=== PATIENT | male | born 1960 | race Hispanic/Latino ===

== ENCOUNTER → 2017-04-14 | Outpatient (CLI) | payer OTHER ==
[~2017-04-14] MED LIST: ACET12.52 PO; ALBU0.63 IH; ATOR20TA65 PO; BACL10TA PO; CARV25TA PO; DOXY100T2 PO; ENAL2.5T PO; ESOM40CA54 PO; FLUT16H NASAL; FURO20TA4 PO; GABA-529 PO; HYDR-4068 PO; IBUP-2077 PO; PROM25TA7 PO
== END | disposition home or self-care (01) ==
LOC: SHCH 11:31
PROVIDERS: ATTEND Internal Medicine Cardiovascular Disease
DX: I10 Essential (primary) hypertension (principal); I42.0 Dilated cardiomyopathy; E78.5 Hyperlipidemia, unspecified
CPT/HCPCS: 93306

== ENCOUNTER 2017-09-15 08:00 | Observation (INO) | payer OTHER ==
[2017-09-10 10:45] LABS: BASOPHILS % (AUTO) 0.9 % (0.0-5.0); EOSINOPHILS % (AUTO) 4.3 % (0.0-8.0); HEMATOCRIT 38.5 % (42-54); LYMPHOCYTES % (AUTO) 24.8 % (21.0-51.0); MEAN CORPUSCULAR HEMOGLOBIN 31.7 pg (27.0-33.0); MEAN CORPUSCULAR HGB CONC 33.7 g/dL (32.0-36.0); MEAN CORPUSCULAR VOLUME 94.2 fL (79-99); MONOCYTES % (AUTO) 8.5 % (3.0-13.0); NEUTROPHILS % (AUTO) 61.5 % (40.0-77.0); PLATELET COUNT (AUTO) 311 K/uL (130-400); RED BLOOD CELL COUNT(AUTO) 4.09 MIL/uL (4.50-6.20); RED CELL DISTRIBUTION WIDTH 13.4 % (11.0-15.5); WHITE BLOOD COUNT (AUTO) 14.5 K/uL (4.8-10.8)
[2017-09-10 10:46] VITALS: BP 152/81
[2017-09-10 10:58] LABS: CREATININE 0.7 mg/dL (0.5-1.5); POTASSIUM 3.9 mmol/L (3.5-5.1)
[2017-09-10 11:35] LABS: INR 1.13 (0.85-1.15); PARTIAL THROMBOPLASTIN TIME 29.7 SEC (26.3-35.5); PROTHROMBIN TIME 11.8 SEC (9.6-11.6)
[2017-09-15] VITALS (18 sets, daily range): BP systolic 117–178; BP diastolic 55–87
[~2017-09-15] VITALS: Ht 177.8 cm; Wt 159.7 kg
[~2017-09-15 08:00] MED LIST changes: -ACET12.52 PO; -ALBU0.63 IH; -ATOR20TA65 PO; -DOXY100T2 PO; -FLUT16H NASAL
[2017-09-15] MEDS ORDERED: SODIUM CHLORIDE 0.9% 1000ML 1,000 ML IV ONE ×2 (08:53→09:06)
[2017-09-15] MEDS ORDERED: MEPERIDINE-PF 25 MG/ML SYG ONE ×6 (15:23→19:07)
[2017-09-15] MEDS ORDERED: MIDAZOLAM HCL 1 MG/ML 2ML VIAL ONE ×5 (15:23→16:19)
[2017-09-15] MEDS ORDERED: CEFAZOLIN SODIUM 1 GM VIAL ONE (15:23)
[2017-09-15] MEDS ORDERED: BUPIVACAINE/PF 0.25% 50ML VIAL IJ ONE (15:23)
[2017-09-15] MEDS ORDERED: LIDOCAINE HCL 2% 20ML ONE ×2 (15:25)
[2017-09-15] MEDS ORDERED: ISOVUE-300 100 ML VIAL IV ONE (15:40)
[2017-09-15] MEDS ORDERED: KETAMINE HCL 100 MG/ML 5ML VIAL IJ ONE (16:32)
[2017-09-15] MEDS ORDERED: PROPOFOL 10 MG/ML 20ML VIAL IV ONE ×3 (16:41→18:07)
[2017-09-15] MEDS ORDERED: FUROSEMIDE 10 MG/ML 2ML VIAL ONE (18:39)
[2017-09-15] MEDS ORDERED: BACLOFEN 10 MG TABLET PO PRN (18:45)
[2017-09-15] MEDS ORDERED: ONDANSETRON HCL 4 MG/2 ML VIAL IV PRN (18:45)
[2017-09-15] MEDS ORDERED: HYDROCODONE/ACETAMINOPHEN 10/325 MG TAB PO PRN (18:45)
[2017-09-15] MEDS ORDERED: PROMETHAZINE HCL 25 MG TABLET PO PRN (18:45)
[2017-09-15] MEDS ORDERED: IBUPROFEN 800 MG TAB PO PRN (18:45)
[2017-09-15] MEDS ORDERED: GABAPENTIN 100 MG CAPSULE PO PRN (18:45)
[2017-09-15] MEDS ORDERED: DOXY100T2 PO (18:49)
[2017-09-15] MEDS ORDERED: ALPRAZOLAM 0.5 MG TABLET PO SCH (21:00)
[2017-09-15] MEDS: CARVEDILOL 25 MG TABLET PO SCH (21:36)
[2017-09-15] MEDS: FUROSEMIDE 20 MG TABLET PO SCH (21:36)
[2017-09-15] MEDS: ENALAPRIL MALEATE 5 MG TAB PO SCH (21:37)
[2017-09-16 03:37] VITALS: BP 119/72
[2017-09-16] MEDS ORDERED: CEFAZOLIN SODIUM 1 GM VIAL IVP SCH (06:00)
[2017-09-16 07:12] VITALS: BP 125/66
[2017-09-16] MEDS ORDERED: ESOMEPRAZOLE MAGNESIUM 40 MG PO SCH (09:00)
[2017-09-16] MEDS: FUROSEMIDE 20 MG TABLET PO SCH (10:08)
[2017-09-16] MEDS: CARVEDILOL 25 MG TABLET PO SCH (10:08)
[2017-09-16] MEDS: ENALAPRIL MALEATE 5 MG TAB PO SCH (10:08)
[2017-09-16 11:27] VITALS: BP 121/71
== END 2017-09-16 14:40 | disposition home or self-care (01) ==
LOC: DAH 08:00 → 2DH 08:01 → DAH 08:01
PROVIDERS: ADMIT Family Medicine; ATTEND Family Medicine
DX: I25.5 Ischemic cardiomyopathy (principal); I11.0 Hypertensive heart disease with heart failure; I50.42 Chronic combined systolic (congestive) and diastolic (congestive) heart failure; I44.7 Left bundle-branch block, unspecified; G47.33 Obstructive sleep apnea (adult) (pediatric); E66.01 Morbid (severe) obesity due to excess calories; K21.9 Gastro-esophageal reflux disease without esophagitis; M19.90 Unspecified osteoarthritis, unspecified site; Z95.810 Presence of automatic (implantable) cardiac defibrillator; Z79.899 Other long term (current) drug therapy
CPT/HCPCS: 33249; 36415; 71046; 80048; 85025; 85610; 85730; 93005; 96374; 96375; A4218; A4606; C1769 ×5; C1882; C1894 ×2; C1895; C1900; G0378 ×31; J0690 ×2; J1940; J2175 ×6; J2250 ×5; J2405; J2704 ×3; J3490 ×4; J7030; Q9967; 33216; 33225; 33241; 33244; 33264; 99156; 99157

== ENCOUNTER 2019-11-11 06:58 | Inpatient (IN) | payer OTHER ==
[~2019-11-11] VITALS: Ht 177.8 cm; Wt 143.5 kg
[~2019-11-11 06:58] MED LIST changes: +DOXY100T2 PO; -ENAL2.5T PO; +ENAL2.5T16 PO
[2019-11-11 07:18] LABS: BASOPHILS % (AUTO) 0.2 % (0.0-5.0); EOSINOPHILS % (AUTO) 0.1 % (0.0-8.0); HEMATOCRIT 45.1 % (42-54); MEAN CORPUSCULAR HEMOGLOBIN 31.6 pg (27.0-33.0); MEAN CORPUSCULAR HGB CONC 32.6 g/dL (32.0-36.0); MONOCYTES % (AUTO) 5.2 % (3.0-13.0); NEUTROPHILS % (AUTO) 83.7 % (40.0-77.0); PLATELET COUNT (AUTO) 212 K/uL (130-400); RED BLOOD CELL COUNT(AUTO) 4.65 MIL/uL (4.50-6.20); RED CELL DISTRIBUTION WIDTH 12.5 % (11.0-15.5); WHITE BLOOD COUNT (AUTO) 18.4 K/uL (4.8-10.8)
[2019-11-11 07:34] LABS: CARBON DIOXIDE 27 mmol/L (21-32); CHLORIDE 100 mmol/L (101-111); CREATININE 0.7 mg/dL (0.5-1.5); GLOMERULAR FILTR. RATE CALC 123 mL/min (>60); GLUCOSE,RANDOM 162 mg/dL (70-105); POTASSIUM 5.1 mmol/L (3.5-5.1); SODIUM SERUM 133 mmol/L (136-145); UREA NITROGEN, BLOOD 14 mg/dL (7-18)
[2019-11-11 07:43] LABS: INR 1.25 (0.85-1.15); PARTIAL THROMBOPLASTIN TIME 36.4 SEC (26.3-35.5); PROTHROMBIN TIME 13.4 SEC (9.6-11.6)
[2019-11-11 07:45] LABS: ALANINE AMINOTRANSFERASE 27 U/L (12-78); ALBUMIN 2.3 g/dL (3.5-5.0); ASPARTATE AMINOTRANSFERASE 44 U/L (10-37); BILIRUBIN,TOTAL 0.7 mg/dL (0.2-1.0); CREATINE KINASE, TOTAL 95 U/L (21-232); MYOGLOBIN 41 ng/mL (10-92); TOTAL PROTEIN, SERUM 7.5 g/dL (6.0-8.3); TROPONIN I < 0.04 ng/mL (0.00-0.06)
[2019-11-11] MEDS ORDERED: METHYLPREDNISOLONE SOD SUCC 40MG/ML 1ML ONE (08:14)
[2019-11-11] MEDS ORDERED: CEFTRIAXONE SODIUM 2 GM VIAL ONE (08:14)
--- NOTE | 2019-11-11 11:40 | NUR ---
Patient still in ER department,awaiting for patient to be transferred to Medical floor or to COVID unit in order to be able to initiate skilled Physical Therapy Evaluation. Addendum: 11/11/19 at 1523 by LAKHWINDER ELIAS, PT PT Amended: Links added.
[2019-11-11] MEDS: DOXYCYCLINE 100MG+NS 250ML IV SCH ×2 (11:45→23:45)
[2019-11-11] MEDS: CEFTRIAXONE SODIUM 1 GM IVP SCH ×2 (11:45→22:58)
[2019-11-11] MEDS ORDERED: POTASSIUM CHLORIDE 20MEQ/100ML 100 ML IV PRN (11:45)
[2019-11-11] MEDS ORDERED: ACETAMINOPHEN 325 MG TAB PO PRN (11:45)
[2019-11-11] MEDS ORDERED: POTASSIUM CHLORIDE 20 MEQ ERTAB PO PRN (11:45)
[2019-11-11] MEDS ORDERED: HYDRALAZINE HCL 20 MG/ML VIAL IV PRN (11:45)
[2019-11-11] MEDS ORDERED: LIDOCAINE HCL-MPF 1% 2ML VIAL IV PRN (11:45)
[2019-11-11] MEDS ORDERED: DEXTROSE 50%-WATER 50 ML DISP.SYRIN IV PRN (11:45)
[2019-11-11] MEDS ORDERED: LOPERAMIDE 1 MG/7.5 ML UDCUP PO PRN (11:45)
[2019-11-11] MEDS ORDERED: ONDANSETRON HCL 4 MG/2 ML VIAL IVP PRN (11:45)
[2019-11-11] MEDS ORDERED: POTASSIUM CHLORIDE 10% ELIXIR 20 MEQ/15 ML UDCUP PO PRN (11:45)
[2019-11-11] MEDS ORDERED: GLUCAGON 1MG KIT 1 MG ML IM PRN (11:45)
[2019-11-11 14:45] VITALS: BP 136/57
[2019-11-11] MEDS: INSULIN HUMULIN R 100 UNIT/ML 3ML SQ SCH ×2 (16:30→20:40)
[2019-11-11] MEDS: FAMOTIDINE 20MG TAB 20 MG TAB PO SCH (20:09)
[2019-11-11] MEDS: HYDROMORPHONE HCL 0.5 MG/0.5 ML ML IVP PRN (20:11)
[2019-11-11] MEDS ORDERED: ZINC SULFATE 220 CAPSULE PO SCH (20:15)
[2019-11-11] MEDS ORDERED: ASCORBIC ACID 500 MG TAB PO SCH (20:15)
[2019-11-11] MEDS: ENOXAPARIN SODIUM 80 MG/0.8 ML SQ SCH (20:51)
[2019-11-11 20:54] VITALS: BP 142/76
[2019-11-11 23:45] VITALS: BP 144/76
[2019-11-12 03:33] LABS: ABG BASE EXCESS 2.5 mmol/L (-2.0-3.0); ABG HCO3 26.9 mmol/L (21.0-28.0); ABG PCO2 41 mmHg (35-48)
[2019-11-12 04:00] VITALS: BP 143/68
[2019-11-12] MEDS: HYDROMORPHONE HCL 0.5 MG/0.5 ML ML IVP PRN ×2 (04:00→19:53)
[2019-11-12 04:55] LABS: BASOPHILS % (AUTO) 0.1 % (0.0-5.0); HEMATOCRIT 41.9 % (42-54); LYMPHOCYTES % (AUTO) 10.2 % (21.0-51.0); MEAN CORPUSCULAR HEMOGLOBIN 31.3 pg (27.0-33.0); MEAN CORPUSCULAR HGB CONC 32.5 g/dL (32.0-36.0); MEAN CORPUSCULAR VOLUME 96.3 fL (79-99); MONOCYTES % (AUTO) 9.4 % (3.0-13.0); NEUTROPHILS % (AUTO) 79.4 % (40.0-77.0); PLATELET COUNT (AUTO) 241 K/uL (130-400); RED BLOOD CELL COUNT(AUTO) 4.35 MIL/uL (4.50-6.20); RED CELL DISTRIBUTION WIDTH 12.5 % (11.0-15.5); WHITE BLOOD COUNT (AUTO) 15.5 K/uL (4.8-10.8)
[2019-11-12 04:59] LABS: ALANINE AMINOTRANSFERASE 36 U/L (12-78); ASPARTATE AMINOTRANSFERASE 30 U/L (10-37); BILIRUBIN,DIRECT 0.1 mg/dL (0.0-0.3); BILIRUBIN,TOTAL 0.5 mg/dL (0.2-1.0); CARBON DIOXIDE 29 mmol/L (21-32); CHLORIDE 103 mmol/L (101-111); CREATININE 0.8 mg/dL (0.5-1.5); GLOMERULAR FILTR. RATE CALC 105 mL/min (>60); GLUCOSE,RANDOM 131 mg/dL (70-105); LACTATE DEHYDROGENASE 267 U/L (81-234); PHOSPHORUS 2.4 mg/dL (2.5-4.9); POTASSIUM 3.7 mmol/L (3.5-5.1); SODIUM SERUM 139 mmol/L (136-145); TOTAL PROTEIN, SERUM 6.8 g/dL (6.0-8.3); UREA NITROGEN, BLOOD 18 mg/dL (7-18)
[2019-11-12] MEDS: INSULIN HUMULIN R 100 UNIT/ML 3ML SQ SCH ×4 (05:56→21:00)
--- NOTE | 2019-11-12 06:18 | NUR ---
assessment Pt. is alert and oriented times 4. complains of chronic back pain for which i medicated the pt. twice throughout the night with .5 of dilaudid. patient got up and walked to the bathroom without oxygen and had a bowel movement. after he came back to bed i checked his oxygen and he was sating 82% on room air. i put the high flow back on the patient and he recovered to 93%. he signed the consent for plasma last night and a copy was sent to lab. his am blood sugar is 119. no coverage needed. vitals stable will continue to monitor.
[2019-11-12 08:00] VITALS: BP 146/79
[2019-11-12] MEDS: ASCORBIC ACID 500 MG TAB PO SCH (08:50)
[2019-11-12] MEDS: ENOXAPARIN SODIUM 80 MG/0.8 ML SQ SCH ×2 (08:50→19:53)
[2019-11-12] MEDS: FAMOTIDINE 20MG TAB 20 MG TAB PO SCH ×2 (08:50→19:52)
[2019-11-12] MEDS: DEXAMETHASONE SOD PHOSPHATE 4 MG/ML 1ML VIAL IVP SCH (08:51)
[2019-11-12 11:30] VITALS: BP 154/96
[2019-11-12] MEDS ORDERED: ZINC SULFATE 220 CAPSULE PO SCH (12:00)
[2019-11-12] MEDS: CEFTRIAXONE SODIUM 1 GM IVP SCH ×2 (13:23→23:09)
[2019-11-12] MEDS: FUROSEMIDE 10 MG/ML 4ML VIAL IV SCH ×2 (13:23→23:09)
[2019-11-12] MEDS ORDERED: ZINC SULFATE 220 CAPSULE PO ONE (15:00)
[2019-11-12 15:30] VITALS: BP 154/68
--- NOTE | 2019-11-12 16:15 | NUR ---
INITIAL SW spoke to patient's spouse, Jose Alston. Patient lives with spouse and has no home services. DME: nebulizer. Patient is able to complete ADL's independently and drives. PCP is Dr. Dayami Harkins. Pharmacy is [facility] in [place]. DCP is home. Addendum: 11/12/19 at 1618 by DAYAMI HANKINS SS Amended: Links added.
[2019-11-12] MEDS: DOXYCYCLINE HYCLATE 100 MG TABLET PO SCH (19:52)
[2019-11-12 20:12] VITALS: BP 162/91
[2019-11-12 23:53] VITALS: BP 149/74
[2019-11-13] MEDS: HYDROMORPHONE HCL 0.5 MG/0.5 ML ML IVP PRN (02:33)
[2019-11-13 04:08] VITALS: BP 171/95
[2019-11-13] MEDS: INSULIN HUMULIN R 100 UNIT/ML 3ML SQ SCH ×4 (05:44→21:00)
--- NOTE | 2019-11-13 06:01 | NUR ---
assessment patient is alert and oriented times 4. was given dilaudid last night twice for his chronic back pain. patient is on high flow sating 92%. am blood sugar was 104 vitals are stable will continue to monitor.
[2019-11-13 06:26] LABS: HEMATOCRIT 46.2 % (42-54); MEAN CORPUSCULAR HEMOGLOBIN 31.5 pg (27.0-33.0); MEAN CORPUSCULAR HGB CONC 32.7 g/dL (32.0-36.0); MEAN CORPUSCULAR VOLUME 96.5 fL (79-99); RED BLOOD CELL COUNT(AUTO) 4.79 MIL/uL (4.50-6.20); RED CELL DISTRIBUTION WIDTH 12.5 % (11.0-15.5); WHITE BLOOD COUNT (AUTO) 18.6 K/uL (4.8-10.8)
[2019-11-13 07:23] LABS: ABG BASE EXCESS 3.6 mmol/L (-2.0-3.0); ABG HCO3 27.8 mmol/L (21.0-28.0); ABG OXYGEN SATURATION 92.3 % (95.0-99.0); ABG PCO2 41 mmHg (35-48)
[2019-11-13 08:00] VITALS: BP 164/93
[2019-11-13 08:59] LABS: CREATININE 0.8 mg/dL (0.5-1.5); CRP QUANTITATIVE 88.8 mg/L (0.00-9.0); MAGNESIUM 2.2 mg/dL (1.80-2.40); PHOSPHORUS 2.5 mg/dL (2.5-4.9); POTASSIUM 3.5 mmol/L (3.5-5.1)
[2019-11-13] MEDS: FAMOTIDINE 20MG TAB 20 MG TAB PO SCH ×2 (10:32→21:38)
[2019-11-13] MEDS: ASCORBIC ACID 500 MG TAB PO SCH (10:32)
[2019-11-13] MEDS: DOXYCYCLINE HYCLATE 100 MG TABLET PO SCH ×2 (10:32→21:38)
[2019-11-13] MEDS: DEXAMETHASONE SOD PHOSPHATE 4 MG/ML 1ML VIAL IVP SCH (10:34)
[2019-11-13] MEDS: ENOXAPARIN SODIUM 80 MG/0.8 ML SQ SCH ×2 (10:36→21:41)
[2019-11-13 11:30] VITALS: BP 183/97
[2019-11-13] MEDS: ENALAPRIL MALEATE 5 MG TAB PO SCH ×2 (12:03→21:00)
[2019-11-13] MEDS: FUROSEMIDE 10 MG/ML 4ML VIAL IV SCH (13:02)
[2019-11-13] MEDS: CARVEDILOL 25 MG TABLET PO SCH ×2 (13:02→21:41)
[2019-11-13] MEDS: CEFTRIAXONE SODIUM 1 GM IVP SCH ×2 (13:03→23:45)
[2019-11-13] MEDS: ZINC SULFATE 220 CAPSULE PO SCH (13:03)
[2019-11-13] MEDS ORDERED: GABAPENTIN 100 MG CAPSULE PO PRN (13:15)
[2019-11-13 15:30] VITALS: BP 138/79
--- NOTE | 2019-11-13 19:10 | NUR ---
Patient given 2 units of convalescent plasma on shift and tolerated well.
[2019-11-13] MEDS ORDERED: ALBUTEROL INHALER 90MCG/INH IH PRN (20:45)
[2019-11-13 21:29] VITALS: BP 148/78
--- NOTE | 2019-11-13 21:46 | NUR ---
VASOTEC MEDICATION WAS NOT AVAILABLE IN [facility]
[2019-11-14 00:23] VITALS: BP 129/63
[2019-11-14] MEDS: FUROSEMIDE 10 MG/ML 4ML VIAL IV SCH ×3 (01:50→21:52)
[2019-11-14 04:05] LABS: ABG HCO3 28.8 mmol/L (21.0-28.0); ABG OXYGEN SATURATION 90.3 % (95.0-99.0); ABG PCO2 36 mmHg (35-48)
[2019-11-14 04:23] VITALS: BP 153/82
[2019-11-14 07:05] LABS: HEMATOCRIT 46.3 % (42-54); MEAN CORPUSCULAR HEMOGLOBIN 31.5 pg (27.0-33.0); MEAN CORPUSCULAR HGB CONC 32.8 g/dL (32.0-36.0); MEAN CORPUSCULAR VOLUME 95.9 fL (79-99); RED BLOOD CELL COUNT(AUTO) 4.83 MIL/uL (4.50-6.20); RED CELL DISTRIBUTION WIDTH 12.5 % (11.0-15.5); WHITE BLOOD COUNT (AUTO) 18.5 K/uL (4.8-10.8)
[2019-11-14] MEDS: INSULIN HUMULIN R 100 UNIT/ML 3ML SQ SCH ×4 (07:30→21:00)
[2019-11-14 07:33] LABS: ALBUMIN 2.5 g/dL (3.5-5.0); BILIRUBIN,TOTAL 0.6 mg/dL (0.2-1.0); CREATININE 0.7 mg/dL (0.5-1.5); MAGNESIUM 2.4 mg/dL (1.80-2.40); POTASSIUM 3.8 mmol/L (3.5-5.1); TOTAL PROTEIN, SERUM 7.8 g/dL (6.0-8.3)
[2019-11-14 08:00] VITALS: BP 131/79
[2019-11-14] MEDS: ENOXAPARIN SODIUM 80 MG/0.8 ML SQ SCH ×2 (09:00→21:55)
[2019-11-14] MEDS: DOXYCYCLINE HYCLATE 100 MG TABLET PO SCH ×2 (09:00→21:52)
[2019-11-14] MEDS: ASCORBIC ACID 500 MG TAB PO SCH (09:00)
[2019-11-14] MEDS: CARVEDILOL 25 MG TABLET PO SCH ×2 (09:00→21:58)
[2019-11-14] MEDS: FAMOTIDINE 20MG TAB 20 MG TAB PO SCH ×2 (09:00→21:52)
[2019-11-14] MEDS: ENALAPRIL MALEATE 5 MG TAB PO SCH ×2 (09:00→21:52)
[2019-11-14] MEDS: DEXAMETHASONE SOD PHOSPHATE 4 MG/ML 1ML VIAL IVP SCH (09:00)
[2019-11-14 11:30] VITALS: BP 129/75
[2019-11-14] MEDS: CEFTRIAXONE SODIUM 1 GM IVP SCH ×2 (12:32→21:54)
[2019-11-14] MEDS: ZINC SULFATE 220 CAPSULE PO SCH (12:32)
[2019-11-14 15:30] VITALS: BP 112/57
[2019-11-14 20:00] VITALS: BP 140/86
[2019-11-15] VITALS: BP 139/82
[2019-11-15 04:00] VITALS: BP 115/74
[2019-11-15 05:18] LABS: BASOPHILS % (AUTO) 0.6 % (0.0-5.0); EOSINOPHILS % (AUTO) 0.2 % (0.0-8.0); HEMATOCRIT 48.9 % (42-54); LYMPHOCYTES % (AUTO) 17.5 % (21.0-51.0); MEAN CORPUSCULAR HEMOGLOBIN 30.8 pg (27.0-33.0); MEAN CORPUSCULAR HGB CONC 31.3 g/dL (32.0-36.0); MEAN CORPUSCULAR VOLUME 98.6 fL (79-99); MONOCYTES % (AUTO) 11.7 % (3.0-13.0); NEUTROPHILS % (AUTO) 66.7 % (40.0-77.0); PLATELET COUNT (AUTO) 302 K/uL (130-400); RED BLOOD CELL COUNT(AUTO) 4.96 MIL/uL (4.50-6.20); RED CELL DISTRIBUTION WIDTH 12.6 % (11.0-15.5)
[2019-11-15 05:45] LABS: CREATININE 1.1 mg/dL (0.5-1.5); MAGNESIUM 2.3 mg/dL (1.80-2.40); POTASSIUM 3.7 mmol/L (3.5-5.1)
[2019-11-15] MEDS: INSULIN HUMULIN R 100 UNIT/ML 3ML SQ SCH ×4 (05:52→21:00)
[2019-11-15 08:00] VITALS: BP 148/77
[2019-11-15] MEDS: FUROSEMIDE 10 MG/ML 4ML VIAL IV SCH ×2 (09:00→11:40)
[2019-11-15] MEDS: FAMOTIDINE 20MG TAB 20 MG TAB PO SCH ×2 (09:03→21:10)
[2019-11-15] MEDS: DOXYCYCLINE HYCLATE 100 MG TABLET PO SCH ×2 (09:04→21:11)
[2019-11-15] MEDS: ZINC SULFATE 220 CAPSULE PO SCH (09:04)
[2019-11-15] MEDS: CARVEDILOL 25 MG TABLET PO SCH ×2 (09:05→21:11)
[2019-11-15] MEDS: ASCORBIC ACID 500 MG TAB PO SCH (09:05)
[2019-11-15] MEDS: ENOXAPARIN SODIUM 80 MG/0.8 ML SQ SCH ×2 (09:06→21:10)
[2019-11-15] MEDS: DEXAMETHASONE SOD PHOSPHATE 4 MG/ML 1ML VIAL IVP SCH (09:07)
[2019-11-15] MEDS: ENALAPRIL MALEATE 5 MG TAB PO SCH ×2 (09:08→21:12)
[2019-11-15 11:30] VITALS: BP 133/63
[2019-11-15] MEDS: CEFTRIAXONE SODIUM 1 GM IVP SCH ×2 (11:38→21:10)
[2019-11-15 15:30] VITALS: BP 127/82
[2019-11-15 20:24] VITALS: BP 137/82
[2019-11-15] MEDS: FUROSEMIDE 40 MG TABLET PO SCH (21:11)
[2019-11-16 00:19] VITALS: BP 113/79
[2019-11-16 03:39] VITALS: BP 123/67
[2019-11-16 04:23] LABS: BASOPHILS % (AUTO) 0.4 % (0.0-5.0); EOSINOPHILS % (AUTO) 1.4 % (0.0-8.0); HEMATOCRIT 47.2 % (42-54); LYMPHOCYTES % (AUTO) 15.1 % (21.0-51.0); MEAN CORPUSCULAR HEMOGLOBIN 31.1 pg (27.0-33.0); MEAN CORPUSCULAR HGB CONC 31.8 g/dL (32.0-36.0); MEAN CORPUSCULAR VOLUME 97.7 fL (79-99); MONOCYTES % (AUTO) 12.9 % (3.0-13.0); NEUTROPHILS % (AUTO) 65.9 % (40.0-77.0); PLATELET COUNT (AUTO) 290 K/uL (130-400); RED BLOOD CELL COUNT(AUTO) 4.83 MIL/uL (4.50-6.20); RED CELL DISTRIBUTION WIDTH 12.6 % (11.0-15.5); WHITE BLOOD COUNT (AUTO) 21.8 K/uL (4.8-10.8)
[2019-11-16 04:39] LABS: ALBUMIN 2.5 g/dL (3.5-5.0); BILIRUBIN,TOTAL 0.5 mg/dL (0.2-1.0); CREATININE 0.9 mg/dL (0.5-1.5); MAGNESIUM 2.3 mg/dL (1.80-2.40); PHOSPHORUS 3.4 mg/dL (2.5-4.9); POTASSIUM 3.7 mmol/L (3.5-5.1); TOTAL PROTEIN, SERUM 8.1 g/dL (6.0-8.3)
[2019-11-16 08:00] VITALS: BP 156/82
[2019-11-16] MEDS: ENOXAPARIN SODIUM 80 MG/0.8 ML SQ SCH ×2 (08:18→21:27)
[2019-11-16] MEDS: ENALAPRIL MALEATE 5 MG TAB PO SCH ×2 (08:19→21:26)
[2019-11-16] MEDS: FUROSEMIDE 40 MG TABLET PO SCH ×2 (08:20→21:24)
[2019-11-16] MEDS: ASCORBIC ACID 500 MG TAB PO SCH (08:20)
[2019-11-16] MEDS: DOXYCYCLINE HYCLATE 100 MG TABLET PO SCH ×2 (08:21→21:24)
[2019-11-16] MEDS: DEXAMETHASONE SOD PHOSPHATE 4 MG/ML 1ML VIAL IVP SCH (08:22)
[2019-11-16] MEDS: FAMOTIDINE 20MG TAB 20 MG TAB PO SCH ×2 (08:22→21:26)
[2019-11-16] MEDS: CARVEDILOL 25 MG TABLET PO SCH ×2 (08:22→21:26)
[2019-11-16] MEDS: INSULIN HUMULIN R 100 UNIT/ML 3ML SQ SCH ×3 (11:30→21:25)
[2019-11-16 11:54] VITALS: BP 127/63
[2019-11-16] MEDS: ZINC SULFATE 220 CAPSULE PO SCH (12:37)
[2019-11-16] MEDS: CEFTRIAXONE SODIUM 1 GM IVP SCH ×2 (12:37→21:27)
[2019-11-16 16:00] VITALS: BP 119/67
[2019-11-16 20:11] VITALS: BP 136/60
[2019-11-17] VITALS: BP 148/80
[2019-11-17 03:23] LABS: ABG BASE EXCESS 3.7 mmol/L (-2.0-3.0); ABG HCO3 28.1 mmol/L (21.0-28.0); ABG OXYGEN SATURATION 85.2 % (95.0-99.0); ABG PCO2 42 mmHg (35-48)
[2019-11-17 04:55] LABS: BASOPHILS % (AUTO) 0.5 % (0.0-5.0); LYMPHOCYTES % (AUTO) 15.1 % (21.0-51.0); MEAN CORPUSCULAR HEMOGLOBIN 31.1 pg (27.0-33.0); MEAN CORPUSCULAR HGB CONC 31.7 g/dL (32.0-36.0); MEAN CORPUSCULAR VOLUME 98.2 fL (79-99); MONOCYTES % (AUTO) 10.4 % (3.0-13.0); NEUTROPHILS % (AUTO) 68.6 % (40.0-77.0); PLATELET COUNT (AUTO) 261 K/uL (130-400); RED BLOOD CELL COUNT(AUTO) 4.89 MIL/uL (4.50-6.20); RED CELL DISTRIBUTION WIDTH 12.7 % (11.0-15.5); WHITE BLOOD COUNT (AUTO) 19.7 K/uL (4.8-10.8)
[2019-11-17 05:36] LABS: ALBUMIN 2.4 g/dL (3.5-5.0); BILIRUBIN,TOTAL 0.4 mg/dL (0.2-1.0); CREATININE 0.9 mg/dL (0.5-1.5); MAGNESIUM 2.5 mg/dL (1.80-2.40); PHOSPHORUS 3.4 mg/dL (2.5-4.9); TOTAL PROTEIN, SERUM 7.8 g/dL (6.0-8.3)
[2019-11-17] MEDS: INSULIN HUMULIN R 100 UNIT/ML 3ML SQ SCH ×2 (06:55→12:49)
[2019-11-17 07:30] VITALS: BP 128/70
[2019-11-17] MEDS: DEXAMETHASONE SOD PHOSPHATE 4 MG/ML 1ML VIAL IVP SCH (08:27)
[2019-11-17] MEDS: FUROSEMIDE 40 MG TABLET PO SCH (08:28)
[2019-11-17] MEDS: ZINC SULFATE 220 CAPSULE PO SCH (08:28)
[2019-11-17] MEDS: FAMOTIDINE 20MG TAB 20 MG TAB PO SCH (08:29)
[2019-11-17] MEDS: ENOXAPARIN SODIUM 80 MG/0.8 ML SQ SCH (08:29)
[2019-11-17] MEDS: DOXYCYCLINE HYCLATE 100 MG TABLET PO SCH (08:29)
[2019-11-17] MEDS: CARVEDILOL 25 MG TABLET PO SCH (08:29)
[2019-11-17] MEDS: ASCORBIC ACID 500 MG TAB PO SCH (08:30)
[2019-11-17] MEDS: ENALAPRIL MALEATE 5 MG TAB PO SCH (08:37)
[2019-11-17] MEDS: CEFTRIAXONE SODIUM 1 GM IVP SCH (08:51)
[2019-11-17 11:00] VITALS: BP 120/51
[2019-11-17] MEDS ORDERED: DEXA6TAB PO (14:34)
--- NOTE | 2019-11-17 17:00 | NUR ---
DC HOME WITH [facility] O2 TANK AND CONCENTRATOR, PAPERWORK SIGNED, PENDING LIZ ENTERED IN THE LOG Addendum: 11/17/19 at 1831 by LYNN ROWLEY RN CM Amended: Links added.
== END 2019-11-17 17:20 | disposition home or self-care (01) | DRG 871 ==
LOC: EDH 06:58 → OBSVTOIN 11:37 → EDHIP 11:37 → 4BH 14:52
PROVIDERS: ADMIT Internal Medicine; ATTEND Internal Medicine
PROC: XW13325 Transfusion of Convalescent Plasma (Nonautologous) into Peripheral Vein, Percutaneous Approach, New Technology Group 5 (ICD-10-PCS; principal; 2019-11-13)
DX: A41.9 Sepsis, unspecified organism (principal); U07.1 COVID-19; J12.89 Other viral pneumonia; J96.01 Acute respiratory failure with hypoxia; I50.43 Acute on chronic combined systolic (congestive) and diastolic (congestive) heart failure; I42.0 Dilated cardiomyopathy; E87.2 Acidosis; E66.2 Morbid (severe) obesity with alveolar hypoventilation; Z68.42 Body mass index [BMI] 45.0-49.9, adult; K21.9 Gastro-esophageal reflux disease without esophagitis; Z95.810 Presence of automatic (implantable) cardiac defibrillator; Z79.899 Other long term (current) drug therapy
CPT/HCPCS: 36415; 36600; 71045; 80048; 80053; 80076; 82550; 82728; 82803; 82948; 83605; 83615; 83735; 83874; 83880; 84100; 84145; 84484; 85025; 85027; 85378; 85610; 85730; 86140; 86850; 86900; 86901; 86927; 87040; 93005; 93306; 93356; 94760; 97039; 99291; G0378; J0696; J1100; J1170; J1650; J1815; J1940; J2405; J2920; J3490; U0003

== ENCOUNTER → 2020-07-05 | Outpatient (CLI) | payer OTHER ==
[~2020-07-05] MED LIST changes: -BACL10TA PO; +DEXA6TAB PO; -DOXY100T2 PO; -ESOM40CA54 PO; -FURO20TA4 PO; -HYDR-4068 PO; -IBUP-2077 PO; -PROM25TA7 PO
== END | disposition home or self-care (01) ==
LOC: SHCH 09:26
PROVIDERS: ATTEND Internal Medicine Cardiovascular Disease
DX: I42.0 Dilated cardiomyopathy (principal)
CPT/HCPCS: 93306; 93356

== ENCOUNTER 2023-06-21 14:44 | Inpatient (IN) | payer OTHER ==
[~2023-06-21] VITALS: Ht 177.8 cm; Wt 139.2 kg
[~2023-06-21 14:44] MED LIST changes: +ATOR10 PO; -CARV25TA PO; +CEFU500T67 PO; -DEXA6TAB PO; +DOXY100C5 PO; +FURO20TA4 PO; +[UNRECOGNIZED DRUG - CODE] PO
[2023-06-21 15:16] LABS: BASOPHILS % (AUTO) 0.7 % (0.0-5.0); EOSINOPHILS # (AUTO) 0.78 K/uL (0.00-0.70); EOSINOPHILS % (AUTO) 5.7 % (0.0-8.0); HEMATOCRIT 40.6 % (42-54); IMMATURE GRANULOCYTE ABSOLUTE 0.07 K/uL (0-1); LYMPHOCYTES % (AUTO) 21.6 % (21.0-51.0); MEAN CORPUSCULAR HEMOGLOBIN 31.7 pg (27.0-33.0); MEAN CORPUSCULAR HGB CONC 32.3 g/dL (32.0-36.0); MEAN CORPUSCULAR VOLUME 98.3 fL (79-99); MONOCYTES # (AUTO) 1.3 K/uL (0.1-1.0); MONOCYTES % (AUTO) 9.2 % (3.0-13.0); NEUTROPHILS # (AUTO) 8.5 K/uL (1.8-7.7); NEUTROPHILS % (AUTO) 62.3 % (40.0-77.0); PLATELET COUNT (AUTO) 260 K/uL (130-400); RED BLOOD CELL COUNT(AUTO) 4.13 MIL/uL (4.50-6.20); WHITE BLOOD COUNT (AUTO) 13.7 K/uL (4.8-10.8)
[2023-06-21 15:26] LABS: CREATININE 0.9 mg/dL (0.5-1.5)
[2023-06-21 15:29] LABS: INR 1.08 (0.85-1.15); PROTHROMBIN TIME 12.5 SEC (9.6-11.6)
[2023-06-21 15:30] LABS: PARTIAL THROMBOPLASTIN TIME 32.7 SEC (26.3-35.5)
[2023-06-21 15:31] LABS: ALBUMIN 2.9 g/dL (3.5-5.0); BILIRUBIN,TOTAL 0.4 mg/dL (0.2-1.0); TOTAL PROTEIN, SERUM 7.4 g/dL (6.0-8.3)
[2023-06-21 16:06] LABS: B-TYPE NATRIURETIC PEPTIDE 36 pg/mL (0-100)
[2023-06-21] MEDS: ASPIRIN 325MG TAB PO ONE (16:22)
[2023-06-21] MEDS: METOCLOPRAMIDE 10 MG/2 ML VIAL IM ONE (16:23)
[2023-06-21] MEDS ORDERED: ACETAMINOPHEN 325 MG TAB PO PRN (18:30)
[2023-06-21] MEDS ORDERED: HYDRALAZINE 20MG/ML VIAL IV PRN (18:30)
[2023-06-21] MEDS ORDERED: ALBUTEROL 0.083% 2.5 MG/3 ML INH IH PRN (18:30)
[2023-06-21] MEDS ORDERED: ACETAMINOPHEN 650 MG SUPPOSITORY RC PRN (18:30)
[2023-06-21] MEDS ORDERED: ONDANSETRON 4MG INJ IVP PRN (18:30)
[2023-06-21] MEDS ORDERED: TEMAZEPAM 15 MG CAPSULE PO PRN (18:30)
[2023-06-21] MEDS: CLOPIDOGREL 300MG TAB PO ONE (19:02)
[2023-06-21] MEDS: NITROGLYCERIN 50MG/D5W 250ML 250 BOT IV SCH (19:06)
[2023-06-21 19:23] LABS: INR 1.18 (0.85-1.15); PROTHROMBIN TIME 13.5 SEC (9.6-11.6)
[2023-06-21] MEDS: FAMOTIDINE 20MG TAB PO SCH (20:19)
[2023-06-21] MEDS: SIMVASTATIN 20 MG TABLET PO SCH (20:20)
[2023-06-21] MEDS: FUROSEMIDE 20 MG TABLET PO SCH (20:20)
[2023-06-21] MEDS: CARVEDILOL 12.5 MG TABLET PO SCH (20:20)
[2023-06-21] MEDS: 0.9%NACL 1000ML 1,000 ML IV SCH (20:21)
[2023-06-21] MEDS: INSULIN HUMULIN R 100 UNIT/ML 3ML SQ SCH (20:25)
[2023-06-21 23:30] VITALS: BP 140/75; PULSE 63; RESP 19
[2023-06-21 23:45] VITALS: BP 136/76; PULSE 70; RESP 18
[2023-06-22] VITALS (83 sets, daily range): BP systolic 87–168; BP diastolic 35–100; PULSE 63–84; RESP 5–76; O2SAT 97–100
[2023-06-22 06:54] LABS: HEMATOCRIT 38.3 % (42-54); MEAN CORPUSCULAR HEMOGLOBIN 31.5 pg (27.0-33.0); MEAN CORPUSCULAR HGB CONC 32.4 g/dL (32.0-36.0); MEAN CORPUSCULAR VOLUME 97.2 fL (79-99); RED BLOOD CELL COUNT(AUTO) 3.94 MIL/uL (4.50-6.20); RED CELL DISTRIBUTION WIDTH 12.2 % (11.0-15.5); WHITE BLOOD COUNT (AUTO) 11.8 K/uL (4.8-10.8)
[2023-06-22 07:23] LABS: CREATININE 0.8 mg/dL (0.5-1.5); MAGNESIUM 1.9 mg/dL (1.80-2.40); PHOSPHORUS 2.7 mg/dL (2.5-4.9); POTASSIUM 3.5 mmol/L (3.5-5.1); THYROID STIMULATING HORMONE 5.24 uIU/mL (0.36-3.74)
[2023-06-22] MEDS: ASPIRIN 81MG CHEW TAB PO SCH (08:09)
[2023-06-22] MEDS: CLOPIDOGREL 75MG TAB PO SCH (08:09)
[2023-06-22] MEDS: ENOXAPARIN SODIUM 40 MG/0.4 ML SYRINGE SQ SCH (08:10)
[2023-06-22] MEDS ORDERED: ZOSYN 3.375GM +NS 50ML IV ONE (08:30)
[2023-06-22] MEDS ORDERED: LIDOCAINE HCL 2% VISCOUS 30 ML, MAG/ALUM/SIMETH 30ML 30 ML, DICYCLOMINE HCL 20 MG PO PRN (08:30)
[2023-06-22] MEDS: CEFTRIAXONE 2GM VIAL IVPB SCH (09:27)
[2023-06-22] MEDS ORDERED: POTASSIUM CHLORIDE 20MEQ/100ML 100 ML IV PRN ×2 (09:30)
[2023-06-22] MEDS: POTASSIUM CHLORIDE 10% ELIXIR 20 MEQ/15 ML UDCUP PO PRN (09:31)
[2023-06-22 10:49] LABS: APPEARANCE,URINE CLEAR (CLEAR); BILIRUBIN,URINE NEGATIVE (NEGATIVE); COLOR,URINE YELLOW (YELLOW); GLUCOSE, URINE (UA) NEGATIVE (NEGATIVE); KETONES,URINE NEGATIVE (NEGATIVE); LEUKOCYTE ESTERASE ,URINE NEGATIVE Leu/uL (NEGATIVE); MUCUS,URINE RARE LPF (None Seen); NITRATE,URINE NEGATIVE (NEGATIVE); OCCULT BLOOD,URINE NEGATIVE (NEGATIVE); PH,URINE 5.5 (5.0-8.0); PROTEIN,URINE 20 mg/dL (NEGATIVE); RBC,URINE 0-1 /HPF (0-1); SQUAMOUS EPITHELIAL CELL,UR RARE /HPF (0-2); UROBILINOGEN,URINE 0.2 mg/dL (0.2-1.0); WBC,URINE 0-1 /HPF (0-1)
[2023-06-22] MEDS: MORPHINE 2 MG SYG IVP PRN (11:24)
[2023-06-22] MEDS: GABAPENTIN 100 MG CAPSULE PO SCH (17:08)
[2023-06-22] MEDS: LINEZOLID 600 MG/ISO-OSM 300 ML IV SCH (17:08)
[2023-06-22] MEDS: KCL 20 MEQ ERTAB PO PRN (17:35)
[2023-06-22] MEDS: MAGNESIUM 2GM PREMIX 50ML 50 ML IV PRN (17:37)
[2023-06-22] MEDS ORDERED: ATORVASTATIN 10 MG TABLET PO SCH (21:00)
[2023-06-22] MEDS: NITROGLYCERIN 0.4 MG SL TAB SL PRN (22:59)
[2023-06-23] VITALS (17 sets, daily range): BP systolic 101–152; BP diastolic 54–82; PULSE 64–82; RESP 5–37; O2SAT 97–98
[2023-06-23] MEDS ORDERED: KETOROLAC 30MG VIAL (30MG/ML) IV PRN
[2023-06-23] MEDS ORDERED: KETOROLAC 30MG VIAL (30MG/ML) IM PRN
[2023-06-23 06:15] LABS: BASOPHILS # (AUTO) 0.08 K/uL (0.00-0.20); BASOPHILS % (AUTO) 0.9 % (0.0-5.0); EOSINOPHILS # (AUTO) 0.28 K/uL (0.00-0.70); EOSINOPHILS % (AUTO) 3.1 % (0.0-8.0); HEMATOCRIT 38.3 % (42-54); IMMATURE GRANULOCYTE ABSOLUTE 0.06 K/uL (0-1); LYMPHOCYTES % (AUTO) 22.7 % (21.0-51.0); MEAN CORPUSCULAR HEMOGLOBIN 31.6 pg (27.0-33.0); MEAN CORPUSCULAR HGB CONC 32.4 g/dL (32.0-36.0); MEAN CORPUSCULAR VOLUME 97.5 fL (79-99); MONOCYTES # (AUTO) 1.2 K/uL (0.1-1.0); MONOCYTES % (AUTO) 13.5 % (3.0-13.0); NEUTROPHILS # (AUTO) 5.3 K/uL (1.8-7.7); NEUTROPHILS % (AUTO) 59.1 % (40.0-77.0); PLATELET COUNT (AUTO) 206 K/uL (130-400); RED BLOOD CELL COUNT(AUTO) 3.93 MIL/uL (4.50-6.20); WHITE BLOOD COUNT (AUTO) 8.9 K/uL (4.8-10.8)
[2023-06-23 06:26] LABS: CREATININE 0.9 mg/dL (0.5-1.5); MAGNESIUM 2.3 mg/dL (1.80-2.40); POTASSIUM 3.7 mmol/L (3.5-5.1)
[2023-06-23] MEDS: IPRATROPIUM/ALBUTEROL SULFATE 3 ML SOLUTION IH SCH (11:29)
[2023-06-23] MEDS: LISINOPRIL 2.5 MG TABLET PO SCH (12:09)
[2023-06-23 15:23] LABS: SARS-CoV-2, RNA, NAAT NEGATIVE SARS CoV-2 (NEGATIVE)
[2023-06-23 15:29] LABS: INFLUENZA TYPE A Negative For Type A (NEGATIVE); INFLUENZA TYPE B Negative For Type B (NEGATIVE)
[2023-06-24 04:00] VITALS: BP 128/77; PULSE 62; RESP 20
[2023-06-24 05:18] LABS: BASOPHILS # (AUTO) 0.07 K/uL (0.00-0.20); BASOPHILS % (AUTO) 0.8 % (0.0-5.0); EOSINOPHILS # (AUTO) 0.47 K/uL (0.00-0.70); EOSINOPHILS % (AUTO) 5.2 % (0.0-8.0); HEMATOCRIT 38.5 % (42-54); IMMATURE GRANULOCYTE ABSOLUTE 0.06 K/uL (0-1); LYMPHOCYTES # (AUTO) 2.5 K/uL (1.0-4.8); LYMPHOCYTES % (AUTO) 27.8 % (21.0-51.0); MEAN CORPUSCULAR HEMOGLOBIN 30.8 pg (27.0-33.0); MEAN CORPUSCULAR HGB CONC 31.4 g/dL (32.0-36.0); MONOCYTES # (AUTO) 1.5 K/uL (0.1-1.0); MONOCYTES % (AUTO) 15.9 % (3.0-13.0); NEUTROPHILS # (AUTO) 4.5 K/uL (1.8-7.7); NEUTROPHILS % (AUTO) 49.6 % (40.0-77.0); PLATELET COUNT (AUTO) 221 K/uL (130-400); RED BLOOD CELL COUNT(AUTO) 3.93 MIL/uL (4.50-6.20); WHITE BLOOD COUNT (AUTO) 9.1 K/uL (4.8-10.8)
[2023-06-24 05:26] LABS: ALBUMIN 2.5 g/dL (3.5-5.0); BILIRUBIN,TOTAL 0.7 mg/dL (0.2-1.0); CREATININE 0.9 mg/dL (0.5-1.5); POTASSIUM 3.7 mmol/L (3.5-5.1); TOTAL PROTEIN, SERUM 6.7 g/dL (6.0-8.3)
[2023-06-24] MEDS: IPRATROPIUM/ALBUTEROL SULFATE 3 ML SOLUTION IH SCH (07:25)
[2023-06-24 08:00] VITALS: BP_SYST 128; BP_SYST 153; BP_DIAS 83; BP_DIAS 86; PULSE 62; PULSE 70; RESP 18; RESP 20
[2023-06-24 08:17] LABS: MYOGLOBIN, SERUM 45 ng/mL (28-72); RHEUMATOID ARTHRITIS FACTOR 12.5 IU/mL (<14.0)
[2023-06-24] MEDS ORDERED: IPRATROPIUM/ALBUTEROL SULFATE 3 ML SOLUTION IH PRN (10:30)
[2023-06-24 12:00] VITALS: BP 125/87; PULSE 71; RESP 18
[2023-06-24] MEDS ORDERED: GABA100C PO (13:38)
[2023-06-24 14:30] VITALS: PULSE 75; PULSE 78; RESP 20; RESP 22; O2SAT 92; O2SAT 97
[2023-06-24] MEDS: GABAPENTIN 100 MG CAPSULE PO SCH (15:11)
[2023-06-24 16:13] LABS: ALPHA-1-ANTITRYPSIN 168 mg/dL (101-187)
[2023-06-25 15:15] LABS: ATYPICAL P-ANCA AB <1:20 titer (Neg:<1:20); CYTOPLASMIC (C-ANCA) AB, IGG <1:20 titer (Neg:<1:20)
== END 2023-06-24 15:27 | disposition home or self-care (01) | DRG 311 ==
LOC: EDH 14:44 → EDHIP 18:08 → 2BH 23:20 → 2DH 06-23 04:26 → 3DH 06-23 15:40
PROVIDERS: ADMIT Internal Medicine; ATTEND Internal Medicine
DX: I20.0 Unstable angina (principal); I42.0 Dilated cardiomyopathy; J96.11 Chronic respiratory failure with hypoxia; J96.12 Chronic respiratory failure with hypercapnia; K86.1 Other chronic pancreatitis; R65.10 Systemic inflammatory response syndrome (SIRS) of non-infectious origin without acute organ dysfunction; Z68.41 Body mass index [BMI] 40.0-44.9, adult; I11.0 Hypertensive heart disease with heart failure; I50.9 Heart failure, unspecified; Z86.16 Personal history of COVID-19; E66.01 Morbid (severe) obesity due to excess calories; J44.9 Chronic obstructive pulmonary disease, unspecified; Z20.822 Contact with and (suspected) exposure to COVID-19; I34.0 Nonrheumatic mitral (valve) insufficiency; E78.00 Pure hypercholesterolemia, unspecified; K21.9 Gastro-esophageal reflux disease without esophagitis; Z95.810 Presence of automatic (implantable) cardiac defibrillator; Z99.81 Dependence on supplemental oxygen; Z98.84 Bariatric surgery status; Z95.1 Presence of aortocoronary bypass graft
CPT/HCPCS: 36415; 71045; 71250; 76604; 80048; 80053; 80061; 81001; 82103; 82550; 82948; 83516; 83605; 83690; 83735; 83874; 83880; 84100; 84145; 84439; 84443; 84481; 84484; 85025; 85027; 85378; 85610; 85651; 85730; 86038; 86140; 86215; 86235; 86255; 86431; 87040; 87635; 87804; 93005; 93306; 93880; 94640; 94664; 94760; G0378; J0696; J1650; J2020; J2270; J2765; J3475

== ENCOUNTER 2023-12-25 17:36 | Emergency (ER) | payer OTHER ==
[~2023-12-25] VITALS: Ht 177.8 cm; Wt 141.5 kg
[~2023-12-25 17:36] MED LIST changes: +CARV12.580 PO; -CEFU500T67 PO; -DOXY100C5 PO; -ENAL2.5T16 PO; +ENAL2.5T71 PO; -GABA-529 PO; +GABA100C PO; -[UNRECOGNIZED DRUG - CODE] PO
[2023-12-25 17:39] VITALS: TEMP 99
[2023-12-25 18:10] LABS: BASOPHILS # (AUTO) 0.08 K/uL (0.00-0.20); BASOPHILS % (AUTO) 0.6 % (0.0-5.0); EOSINOPHILS % (AUTO) 2.2 % (0.0-8.0); HEMATOCRIT 42.1 % (42-54); IMMATURE GRANULOCYTE ABSOLUTE 0.08 K/uL (0-1); LYMPHOCYTES # (AUTO) 1.7 K/uL (1.0-4.8); LYMPHOCYTES % (AUTO) 12.4 % (21.0-51.0); MEAN CORPUSCULAR HEMOGLOBIN 31.8 pg (27.0-33.0); MEAN CORPUSCULAR HGB CONC 32.8 g/dL (32.0-36.0); MONOCYTES # (AUTO) 1.3 K/uL (0.1-1.0); MONOCYTES % (AUTO) 9.8 % (3.0-13.0); NEUTROPHILS # (AUTO) 10.1 K/uL (1.8-7.7); NEUTROPHILS % (AUTO) 74.4 % (40.0-77.0); PLATELET COUNT (AUTO) 245 K/uL (130-400); RED BLOOD CELL COUNT(AUTO) 4.34 MIL/uL (4.50-6.20); RED CELL DISTRIBUTION WIDTH 12.3 % (11.0-15.5); WHITE BLOOD COUNT (AUTO) 13.6 K/uL (4.8-10.8)
[2023-12-25 18:25] LABS: POTASSIUM 3.6 mmol/L (3.5-5.1)
[2023-12-25 18:37] LABS: BILIRUBIN,TOTAL 0.7 mg/dL (0.2-1.0); TOTAL PROTEIN, SERUM 7.5 g/dL (6.0-8.3)
[2023-12-25] MEDS ORDERED: IOHEXOL-350 75 ML VIAL IV ONE (18:40)
[2023-12-25] MEDS: FAMOTIDINE 20MG VIAL IV ONE (18:45)
[2023-12-25] MEDS: ketOROlac 15MG/ML VIAL (15MG/ML) IV ONE (18:46)
[2023-12-25] MEDS: morPHINE 2 MG SYG IVP ONE (18:46)
[2023-12-25] MEDS: ONDANSETRON 4MG INJ IVP ONE (18:46)
[2023-12-25] MEDS: 0.9%NACL 1000ML 1,000 ML IV ONE (18:47)
[2023-12-25 20:22] VITALS: BP 134/64; PULSE 71; RESP 18; O2SAT 97
[2023-12-25] MEDS ORDERED: ONDA-243 PO (20:28)
[2023-12-25] MEDS ORDERED: FAMO-136 PO (20:28)
[2023-12-25] MEDS: LIDOCAINE HCL 2% VISCOUS 15 ML UDCUP PO ONE (20:29)
[2023-12-25] MEDS: MAG/ALUM/SIMETH 30 ML UDCUP PO ONE (20:29)
== END 2023-12-25 20:38 | disposition home or self-care (01) ==
LOC: EDH 17:36
DX: K29.70 Gastritis, unspecified, without bleeding (principal); R10.13 Epigastric pain; R11.2 Nausea with vomiting, unspecified; I11.0 Hypertensive heart disease with heart failure; I50.9 Heart failure, unspecified; E78.00 Pure hypercholesterolemia, unspecified; Z88.1 Allergy status to other antibiotic agents; Z88.8 Allergy status to other drugs, medicaments and biological substances; Z79.899 Other long term (current) drug therapy; Z95.810 Presence of automatic (implantable) cardiac defibrillator
CPT/HCPCS: 99285; 74177; 96374; 96375; 84478; 84484; 80053; 83690; 85025; 83605; 36415; 93005; 84145; J3490; J2270; J7030; J2405; J1885; Q9967

== ENCOUNTER 2024-03-24 06:40 | Day surgery (SDC) | payer OTHER ==
[~2024-03-24] VITALS: Ht 177.8 cm; Wt 138.3 kg
[2024-03-24] VITALS (11 sets, daily range): BP systolic 95–147; BP diastolic 52–74; PULSE 61–73; RESP 15–18; TEMP 97.2–97.6
[~2024-03-24 06:40] MED LIST changes: +FAMO-136 PO; +ONDA-243 PO
[2024-03-24] MEDS: 0.9%NACL 1000ML 1,000 ML IV ONE (08:13)
[2024-03-24] MEDS ORDERED: proPOFol 10 MG/ML 20ML VIAL IV ONE ×2 (09:33)
== END 2024-03-24 10:40 | disposition home or self-care (01) ==
LOC: DAH 06:40 → ENDO 06:40
PROVIDERS: ATTEND Internal Medicine Gastroenterology
DX: R93.2 Abnormal findings on diagnostic imaging of liver and biliary tract (principal); R94.5 Abnormal results of liver function studies; I10 Essential (primary) hypertension; J44.9 Chronic obstructive pulmonary disease, unspecified; K76.0 Fatty (change of) liver, not elsewhere classified; E66.09 Other obesity due to excess calories; Z68.41 Body mass index [BMI] 40.0-44.9, adult; Z79.899 Other long term (current) drug therapy; Z98.890 Other specified postprocedural states
CPT/HCPCS: 43259; J7030 ×2; J2704 ×2; A4620; A4215; A4223; A7002; A4222; A4221; A4663; A4606; J3490

== ENCOUNTER 2024-03-31 06:02 | Day surgery (SDC) | payer OTHER ==
[2024-03-31] VITALS (16 sets, daily range): BP systolic 120–140; BP diastolic 68–86; PULSE 66–71; RESP 18–20; TEMP 97.2–98.4
[~2024-03-31] VITALS: Ht 177.8 cm; Wt 138.3 kg
[2024-03-31] MEDS ORDERED: LIDOCAINE PF 100MG/5ML (2%) SYRINGE 5ML ONE (07:05)
[2024-03-31] MEDS ORDERED: SUCCINYLCHOLINE CHLORIDE 20 MG/ML 10 ML VIAL ONE (07:05)
[2024-03-31] MEDS ORDERED: rocuRONium bROMide 10MG/1ML 5ML VL ONE (07:05)
[2024-03-31] MEDS ORDERED: proPOFol 10 MG/ML 20ML VIAL IV ONE (07:05)
[2024-03-31] MEDS ORDERED: phenylEPHRINE HCL 10 MG/ML 1ML VIAL IV ONE (07:06)
[2024-03-31] MEDS: 0.9%NACL 1000ML 1,000 ML IV ONE (07:06)
[2024-03-31] MEDS ORDERED: ePHEDrine SULFate 50 MG/ML AMPULE ONE (07:06)
[2024-03-31] MEDS ORDERED: ondanSETRON 4MG INJ ONE (07:06)
[2024-03-31] MEDS ORDERED: FENTanyl CITRate PF 50 MCG/1 ML 2ML VIAL ONE (07:06)
[2024-03-31] MEDS ORDERED: IOHEXOL-350 50ML VIAL IV ONE (07:23)
[2024-03-31] MEDS: INDOMETHACIN 100 MG SUPP.RECT RC ONE (08:35)
[2024-03-31] MEDS ORDERED: ALBUTEROL 0.083% 2.5 MG/3 ML INH IH ONE ×2 (09:09→09:30)
--- NOTE | 2024-03-31 09:36 | HMCIMG ---
ERCP BILI/PANC DUCT REASON: ABNORMAL RESULTS ON DIAGNOSTIC TEST. COMPARISON: None TECHNIQUE: ERCP was performed by referring physician. FINDINGS: Please see procedure report by referring physician. IMPRESSION: ERCP.
== END 2024-03-31 10:36 | disposition home or self-care (01) ==
LOC: ENDO 06:02 → DAH 06:02 → ENDO 10:36
PROVIDERS: ATTEND Internal Medicine Gastroenterology
DX: R93.2 Abnormal findings on diagnostic imaging of liver and biliary tract (principal); K80.50 Calculus of bile duct without cholangitis or cholecystitis without obstruction; I11.0 Hypertensive heart disease with heart failure; I50.9 Heart failure, unspecified; J44.9 Chronic obstructive pulmonary disease, unspecified; E66.09 Other obesity due to excess calories; Z68.41 Body mass index [BMI] 40.0-44.9, adult; Z86.16 Personal history of COVID-19; Z90.49 Acquired absence of other specified parts of digestive tract; Z82.49 Family history of ischemic heart disease and other diseases of the circulatory system; Z82.3 Family history of stroke; Z83.3 Family history of diabetes mellitus; Z82.5 Family history of asthma and other chronic lower respiratory diseases; Z88.1 Allergy status to other antibiotic agents; Z88.8 Allergy status to other drugs, medicaments and biological substances; Z79.899 Other long term (current) drug therapy; Z98.890 Other specified postprocedural states
CPT/HCPCS: 43262; 43264; 74328; 94640; J3010; J0330; J7030 ×2; J3490 ×2; J2003; J2704; J2405; J2371; Q9967; A4215 ×2; A4223; A4657 ×3; A7002; A4222; A4221; A4663; A4606; C1769; C1773; 74330

== ENCOUNTER 2024-07-16 18:44 | Emergency (ER) | payer OTHER ==
[~2024-07-16] VITALS: Ht 177.8 cm; Wt 139.7 kg
--- NOTE | 2024-07-16 19:02 | ERN ---
ED Note History of Present Illness Stated Complaint: MECHANICAL FALL Chief Complaint: Mechanical Fall Time Seen by MD: 18:45 Time Seen by Midlevel: 18:45 Dictation: The Patient is a 64-year-old male with a history of back surgery, hypertension, permanent pacemaker, hyperlipidemia who presents to the emergency department after an accidental trip and fall about 15 minutes prior to arrival. Patient reports that he was trying to kill so mosquitos with he tripped and fell backwards hitting his head. Denies any LOC, nausea or vomiting, use of blood thinners. Patient currently denies left side and occipital headache, left shoulder pain, neck pain. Allergies: Coded Allergies: pantoprazole (Unverified Allergy, Severe, rash, 04/21/13) molnupiravir (Unverified Allergy, Unknown, 12/25/23) vancomycin (Unverified Allergy, Unknown, 12/24/22) Home Meds Active Scripts Famotidine (Pepcid) 20 Mg Tablet, 20 MG PO BID for 5 Days, #10 TAB Prov:GUNNER MOSLEY PA 12/25/23 Ondansetron (Ondansetron Odt) 4 Mg Tab.rapdis, 4 MG PO BID for 7 Days, #14 TAB Prov:GUNNER MOSLEY PA 12/25/23 Gabapentin (Neurontin) 100 Mg Capsule, 200 MG PO TID, #90 CAP Prov:JANAY JOEL SCRAP KETTLE TENDER 06/24/23 Carvedilol (Coreg) 12.5 Mg Tablet, 12.5 MG PO BID, #60 TAB Prov:MACK DUARTE SCRAP KETTLE TENDER 12/27/22 Reported Medications Atorvastatin Calcium (LIPITOR) 20 Mg Tab, 20 MG PO HS, TAB 12/22/22 Furosemide (Furosemide) 20 Mg Tablet, 20 MG PO BID, TAB 12/22/22 Enalapril Maleate (Enalapril Maleate) 2.5 Mg Tablet, 2.5 MG PO BID, TAB 11/28/16 Past Medical History Past Medical History: High Cholesterol, Heart Disease, Hypertension Additional Past Medical Hx: BACK PAIN Surgical History: Pacer/AICD Social History: Negative, Lives with family RN Note Reviewed/Agreed w/PFSH: Yes Review of System Dictation Constitutional: Negative for fever,chills, and weight loss Eyes: Negative for injury, pain,redness, and discharge ENT: Negative for injury,pain or swelling Cardiovascular: Negative for chest pain, palpitations, and edema Respiratory: Negative for shortness of breath, cough, and wheezing, Abdomen/GI: Negative for abdominal pain, nausea, vomiting, diarrhea, and constipation Back: Negative for injury and pain : Negative for injury, bleeding and discharge MS/Extremity: Negative for injury and deformity positive for left shoulder pain, Skin: Negative for rash, and discoloration, positive for neck pain Neuro: Negative for weakness, numbness, tingling, and seizure positive for headache Psych: Negative for suicide ideation, homicidal ideation, and hallucinations Initial Vital Sign VS Vital Signs Date Time Temp Pulse Resp B/P (MAP) Pulse Ox O2 Delivery O2 Flow Rate FiO2 07/16/24 18:48 97.7 69 24 181/85 99 Room Air 0 07/16/24 19:53 21 Physical Exam Dictation Vital Signs reviewed General Appearance: Alert, oriented x 3, no acute distress, well developed, nourished. Head and Face: non-traumatic. Eyes: PERRL, pink conjunctivas, eyelid no trauma, anterior chamber with arcus senilis. Ears: Pinnas intact and no signs of trauma or erythema ear canals clear and no discharge TM no erythema Nose: No discharge, no bleeding. Oropharynx: Mouth normal, tongue pink. pharynx clear,no erythema, tonsils no exudates, no abscesses noted, mucous membrane moist Neck: Supple, non-tender, no thyromegaly, no masses, no JVD, no bruits Breast:Deferred Chest:No tenderness, no crepitus, no paradoxical movement, no retractions Lungs:Clear, well-ventilated, symmetric, no rales, no wheezing, no rhonchi, no stridor, good breath sounds bilaterally Heart: Regular rate, regular rhythm, no murmur, no gallops Vascular: no peripheral edema, Abdomen: Soft, positive bowel sounds, nondistended, no guarding, nontender, no rebound, no masses no hepatomegaly, no splenomegaly, no Burkett's sign, no hernias. Rectal: Deferred Genital: Deferred Neurological: Normal speech, motor function intact, sensory function intact Musculoskeletal: Neck tenderness, full range of motion, back nontender, full range of motion, Extremities: nontender, full range of motion Skin: Color pink, dry, no turgor, no rash, no lacerations, no abrasions, no contusions. Hematoma noticed to left occipital Lymphatic: Deferred Results (Laboratory/Radiology) Laboratory/Radiology Laboratory Tests Test 07/16/24 19:16 White Blood Count 17.4 K/uL (4.8-10.8) H Red Blood Count 4.22 MIL/uL (4.50-6.20) L Hemoglobin 13.4 g/dL (14.0-18.0) L Hematocrit 42.5 % (42-54) Mean Corpuscular Volume 100.7 fL (79-99) H Mean Corpuscular Hemoglobin 31.8 pg (27.0-33.0) Mean Corpuscular Hemoglobin Concent 31.5 g/dL (32.0-36.0) L Red Cell Distribution Width 12.4 % (11.0-15.5) Platelet Count 266 K/uL (130-400) Mean Platelet Volume 9.6 fL (7.5-10.5) Immature Granulocyte % (Auto) 0.5 % (0-1) Neutrophils (%) (Auto) 54.3 % (40.0-77.0) Lymphocytes (%) (Auto) 28.5 % (21.0-51.0) Monocytes (%) (Auto) 9.8 % (3.0-13.0) Eosinophils (%) (Auto) 6.3 % (0.0-8.0) Basophils (%) (Auto) 0.6 % (0.0-5.0) Neutrophils # (Auto) 9.4 K/uL (1.8-7.7) H Lymphocytes # (Auto) 5.0 K/uL (1.0-4.8) H Monocytes # (Auto) 1.7 K/uL (0.1-1.0) H Eosinophils # (Auto) 1.09 K/uL (0.00-0.70) H Basophils # (Auto) 0.11 K/uL (0.00-0.20) Absolute Immature Granulocyte (auto 0.09 K/uL (0-1) Nucleated Red Blood Cells 0.0 % (0.0-0.19) Prothrombin Time 11.8 SEC (9.6-11.6) H Prothromb Time International Ratio 1.13 (0.85-1.15) Activated Partial Thromboplast Time 24.8 SEC (26.3-35.5) L Sodium Level 138 mmol/L (136-145) Potassium Level 4.2 mmol/L (3.5-5.1) Chloride Level 102 mmol/L (101-111) Carbon Dioxide Level 29 mmol/L (21-32) Blood Urea Nitrogen 20 mg/dL (7-18) H Creatinine 1.1 mg/dL (0.5-1.3) Glomerular Filtration Rate Calc 75 mL/min (>90) Random Glucose 101 mg/dL (70-105) Total Calcium 8.4 mg/dL (8.5-10.1) L REASON: fall ORDERING PHYSICIAN: JOVANI CHAVARRIA REED REPAIRER PROCEDURE: SHOL 2V LT - SHOULDER COMP 2+VWS LT SHOULDER COMP 2+VWS LT CLINICAL HISTORY: fall COMPARISON: None TECHNIQUE: 2 images were obtained. FINDINGS: No obvious fracture or dislocation. No joint effusion. The soft tissues appear unremarkable. No radiopaque foreign bodies. There is a left chest pacer maker and leads. IMPRESSION: No acute findings. REASON: fall ORDERING PHYSICIAN: JOVANI CHAVARRIA REED REPAIRER PROCEDURE: HUM 2V LT - HUMERUS 2+VWS LT HUMERUS 2+VWS LT CLINICAL HISTORY: fall COMPARISON: None TECHNIQUE: 2 images were obtained. FINDINGS: No obvious fracture or dislocation. No joint effusion. The soft tissues appear unremarkable. No radiopaque foreign bodies. IMPRESSION: No acute findings. REASON: head trauma ORDERING PHYSICIAN: JOVANI CHAVARRIA REED REPAIRER PROCEDURE: HEAD WO - CT HEAD/BRAIN W/O CONTRAST CT HEAD/BRAIN W/O CONTRAST CLINICAL HISTORY: head trauma COMPARISON: None TECHNIQUE: Multiple sequential axial images of the head were obtained from the base of the skull through vertex. CT was performed with one or more of the following dose reduction techniques: automated exposure control, adjustment of the mA and/or kV according to patient size, or use of iterative reconstruction technique FINDINGS: There is mild atrophy and small vessel disease. The orbital contents, paranasal sinuses and mastoid air cells are within normal limits. The calvarium is intact. There is a small left parietal scalp hematoma. IMPRESSION: Small left parietal scalp hematoma with no underlying skull fracture or intracranial hemorrhage. REASON: head trauma ORDERING PHYSICIAN: JOVANI CHAVARRIA REED REPAIRER PROCEDURE: CAP WO - CT CHEST/ABD/PELV W/O CONTRAST CT CHEST/ABD/PELV W/O CONTRAST CLINICAL HISTORY: head trauma COMPARISON: None TECHNIQUE: Multiple sequential axial images of the chest abdomen and pelvis were obtained from the thoracic inlet through upper abdomen. CT was performed with one or more of the following dose reduction techniques: automated exposure control, adjustment of the mA and/or kV according to patient size, or use of iterative reconstruction technique FINDINGS: There is mild ground glass opacification patchy airspace disease demonstrated in the lung parenchyma. The mediastinum is free of pathologic lymphadenopathy or hematoma. Note is made of artifact pacemaker leads. The liver and spleen are unremarkable. The gallbladder surgically absent. The pancreas and adrenal glands and kidneys and bladder are unremarkable. There is moderate amount of fecal material in the colon. The appendix is unremarkable. There is no identified bowel obstruction. There is no free air or free fluid. There is no bulky abdominal or retroperitoneal lymphadenopathy. The bony structures demonstrate moderate diffuse degenerative changes of the spine. There is no identified acute bony trauma. IMPRESSION: Mild groundglass opacification and patchy areas of airspace disease in the lungs worrisome for potential infiltrates. Change prior cholecystectomy. There is no identified acute trauma REASON: fall ORDERING PHYSICIAN: JOVANI CHAVARRIA PROCEDURE: CXR1VW - CHEST 1VW CHEST 1VW CLINICAL HISTORY: fall COMPARISON: None TECHNIQUE: Single view of the chest was obtained. FINDINGS: There is very mild atelectasis in the right lung base or less likely infiltrate. The cardiac size unremarkable. The bony structures are within normal limits. There is a left chest wall pacemaker with interrupted leads. IMPRESSION: Mild right base atelectasis or infiltrate. There is no identified acute trauma. REASON: head trauma ORDERING PHYSICIAN: JOVANI CHAVARRIA REED REPAIRER PROCEDURE: C SPIN WO - CT CERVICAL SPINE W/O CONTRAST CT CERVICAL SPINE W/O CONTRAST CLINICAL HISTORY: head trauma COMPARISON: None TECHNIQUE: Sequential axial images of cervical spine without contrast and with sagittal and coronal reconstructions. CT was performed with one or more of the following dose reduction techniques: automated exposure control, adjustment of the mA and/or kV according to patient size, or use of iterative reconstruction technique FINDINGS: There is normal alignment of cervical vertebrae. There is no vertebral body height loss or fractures. The prevertebral soft tissue is unremarkable. The dens and periodontic space are within normal limits.There is mild bony osteophyte production and disc space loss at C5-C6 and C6-7. IMPRESSION: Mild degenerative changes with no acute trauma Labs Reviewed?: Yes EKG: (+) rhythm (Atrial sensed ventricular paced) EKG Comment: Date:07/16/2024 Time:1917 Ventricular rate:64 KS interval:153 QRS duration:91 QT/QTc:361 EKG interpretation: Atrial sensed ventricular paced Reviewed by ED Attending no STEMI ED Course ED Course Orders Procedure Category Date Status Time Cbc With Differential LAB 07/16/24 Complete 18:52 Chest 1vw RAD 07/16/24 Resulted 18:52 12 Lead Ekg Tracing- EKG 07/16/24 Complete Technical 18:52 Basic Metabolic Panel LAB 07/16/24 Complete 18:52 Ct Head/Brain W/O CT 07/16/24 Resulted Contrast 18:52 Ct Cervical Spine W/O CT 07/16/24 Resulted Contrast 18:52 Pt And Ptt LAB 07/16/24 Complete 18:52 Acetaminophen 500mg PHA 07/16/24 Complete Tab (Tylenol 500mg T 19:00 Shoulder Comp 2+Vws Lt RAD 07/16/24 Resulted 18:52 Humerus 2+Vws Lt RAD 07/16/24 Resulted 18:52 Ct Chest/Abd/Pelv W/O CT 07/16/24 Resulted Contrast 18:52 Urinalysis Profile LAB 07/16/24 Logged 19:39 Drug Screen Urine LAB 07/16/24 Logged 19:39 Neomy PHA 07/16/24 Complete Sulf/Bacitra/Polymyxin 21:30 Wound Care (Er) CPOE 07/16/24 Transmitted 21:24 Current Medications Medications (Trade) Dose Ordered Sig/Karime Route PRN Reason Start Time Stop Time Status Last Admin Dose Admin Acetaminophen (TYLenol 500MG TAB) 1,000 mg ONCE ONCE PO 07/16/24 19:00 07/16/24 19:01 DC 07/16/24 19:19 Neomycin/ Polymyxin/ Bacitracin (Triple Antibiotic Ointment) 1 appl ONCE ONCE TP 07/16/24 21:30 07/16/24 21:31 DC Vital Signs Date Time Temp Pulse Resp B/P (MAP) Pulse Ox O2 Delivery O2 Flow Rate FiO2 07/16/24 19:53 98.2 66 20 120/58 98 Room Air* 0 21 07/16/24 18:48 97.7 69 24 181/85 99 Room Air 0 Medical Decision Making MDM The Patient is a 64-year-old male with a history of back surgery, hypertension, permanent pacemaker, hyperlipidemia who presents to the emergency department after an accidental trip and fall about 15 minutes prior to arrival. Patient reports that he was trying to kill so mosquitos with he tripped and fell backwards hitting his head. Denies any LOC, nausea or vomiting, use of blood thinners. Patient currently reports left side and occipital headache, left shoulder pain, neck pain. CBC showed leukocytosis,. Patient with a history of leukocytosis. Reports he has been on steroids recently due to pneumonia. Patient denies any fevers or cough. Denies any upper respiratory symptoms. Reports he has scarring in his lungs due to COVID infection, mild normocytic anemia, chemistry showed a no electrolyte imbalance, CT head showed a scalp hematoma, no intracranial bleeding or skull fracture, CT chest, abdomen and pelvis showed no acute trauma. C-spine showed no acute fracture or dislocation. Shoulder showed no acute fracture or dislocation. Patient complaints of left side headache that radiates to the left side of his face. No trauma to face. Full range of motion to jaw. Small abrasion noted to scalp of head. No repair needed at this time. Superficial. Patient in no acute distress. Will be discharged to follow up with PCP. Differential diagnosis: Intracerebral hemorrhage, C-spine fracture, muscle contusion Need for hospitalization: Patient does not meet criteria for hospitalization. There are no social concerns with this patient. DX & DISP Disposition: Discharge Departure Impression: Primary Impression: Ground-level fall Additional Impressions: Scalp hematoma, Shoulder contusion, Contusion of shoulder, left, Leukocytosis Condition: Stable Additional Instructions: Please follow up with your primary doctor in 1-2 days. Continue to monitor for any signs of a altered level of consciousness, severe nausea or vomiting, severe headaches. If symptoms worsen please return to ER. You may continue taking Tylenol as needed for headaches at home. FOLLOW-UP WITH PRIMARY CARE PROVIDER IN 1 TO 2 DAYS. TAKE MEDICATIONS D IRECTED HERE IN THE EMERGENCY ROOM. OKAY TO CONTINUE HOME MEDICATIONS UNLESS OTHERWISE DISCUSSED DURING YOUR VISIT IN THE EMERGENCY ROOM TODAY. RETURN TO YOUR NEAREST EMERGENCY ROOM IF SYMPTOMS WORSEN OR IF THERE IS NO IMPROVEMENT. CALL 911 IF YOU NEED IMMEDIATE ASSISTANCE. TAKE TYLENOL OR MOTRIN [id number] NEEDED AND IF NO CONTRAINDICATIONS ARE PRESENT. INCREASE ORAL HYDRATION. A WOUND CULTURE OR URINE CULTURE WAS ORDERED HERE IN THE EMERGENCY ROOM DEPARTMENT PLEASE FOLLOW-UP WITH PRIMARY CARE PROVIDER AND ADVISE THEM TO GET REPEAT PORTS FROM OUR FACILITY. IF YOU HAD ANY MINOO WRAP/SPLINTS THAT WERE APPLIED HERE, PLEASE DO NOT REMOVE THEM UNTIL YOU SEE YOUR PRIMARY CARE OR SPECIALTY. Referrals: MARIJA RAM DO (PCP) Time of Disposition: 21:41 I have reviewed the case, and I agree with, Diagnosis and Plan JOVANI CHAVARRIA REED REPAIRER Jul 16, 2024 19:02
[2024-07-16] MEDS: acetaMINOPHEN 500 MG TABLET PO ONE (19:19)
--- NOTE | 2024-07-16 19:19 | EKG ---
[facility] Test Date: 2024-07-16 Test Time: 19:18:22 Pat Name: ALINE BACON Department: [facility] Room: Gender: M Public Relations Assistant: [id number] : 1960 Requested By: JOVANI CHAVARRIA Order Number: [id number] Reading MD: Zuleyka Reyes Measurements Intervals [place] Rate: 64 P: 52 MN: 153 QRS: 142 QRSD: 91 T: 47 QT: 361 QTc: 411 Interpretive Statements Atrial-sensed ventricular-paced complexes Compared to ECG 12/25/2023 17:44:53 No significant changes Electronically Signed On 07-18-2024 12:38:07 CDT by Zuleyka Reyes Please click the below link to view image of tracing.
[2024-07-16 19:28] LABS: BASOPHILS # (AUTO) 0.11 K/uL (0.00-0.20); BASOPHILS % (AUTO) 0.6 % (0.0-5.0); EOSINOPHILS # (AUTO) 1.09 K/uL (0.00-0.70); EOSINOPHILS % (AUTO) 6.3 % (0.0-8.0); HEMATOCRIT 42.5 % (42-54); IMMATURE GRANULOCYTE ABSOLUTE 0.09 K/uL (0-1); LYMPHOCYTES % (AUTO) 28.5 % (21.0-51.0); MEAN CORPUSCULAR HEMOGLOBIN 31.8 pg (27.0-33.0); MEAN CORPUSCULAR HGB CONC 31.5 g/dL (32.0-36.0); MEAN CORPUSCULAR VOLUME 100.7 fL (79-99); MONOCYTES # (AUTO) 1.7 K/uL (0.1-1.0); MONOCYTES % (AUTO) 9.8 % (3.0-13.0); NEUTROPHILS # (AUTO) 9.4 K/uL (1.8-7.7); NEUTROPHILS % (AUTO) 54.3 % (40.0-77.0); PLATELET COUNT (AUTO) 266 K/uL (130-400); RED BLOOD CELL COUNT(AUTO) 4.22 MIL/uL (4.50-6.20); RED CELL DISTRIBUTION WIDTH 12.4 % (11.0-15.5); WHITE BLOOD COUNT (AUTO) 17.4 K/uL (4.8-10.8)
[2024-07-16 19:38] LABS: CREATININE 1.1 mg/dL (0.5-1.3); POTASSIUM 4.2 mmol/L (3.5-5.1)
[2024-07-16 19:41] LABS: INR 1.13 (0.85-1.15); PROTHROMBIN TIME 11.8 SEC (9.6-11.6)
[2024-07-16 19:42] LABS: PARTIAL THROMBOPLASTIN TIME 24.8 SEC (26.3-35.5)
--- NOTE | 2024-07-16 19:49 | HMCIMG ---
HUMERUS 2+VWS LT CLINICAL HISTORY: fall COMPARISON: None TECHNIQUE: 2 images were obtained. FINDINGS: No obvious fracture or dislocation. No joint effusion. The soft tissues appear unremarkable. No radiopaque foreign bodies. IMPRESSION: No acute findings.
--- NOTE | 2024-07-16 20:07 | HMCIMG ---
CHEST 1VW CLINICAL HISTORY: fall COMPARISON: None TECHNIQUE: Single view of the chest was obtained. FINDINGS: There is very mild atelectasis in the right lung base or less likely infiltrate. The cardiac size unremarkable. The bony structures are within normal limits. There is a left chest wall pacemaker with interrupted leads. IMPRESSION: Mild right base atelectasis or infiltrate. There is no identified acute trauma.
--- NOTE | 2024-07-16 20:27 | HMCIMG ---
CT HEAD/BRAIN W/O CONTRAST CLINICAL HISTORY: head trauma COMPARISON: None TECHNIQUE: Multiple sequential axial images of the head were obtained from the base of the skull through vertex. CT was performed with one or more of the following dose reduction techniques: automated exposure control, adjustment of the mA and/or kV according to patient size, or use of iterative reconstruction technique FINDINGS: There is mild atrophy and small vessel disease. The orbital contents, paranasal sinuses and mastoid air cells are within normal limits. The calvarium is intact. There is a small left parietal scalp hematoma. IMPRESSION: Small left parietal scalp hematoma with no underlying skull fracture or intracranial hemorrhage.
--- NOTE | 2024-07-16 20:32 | HMCIMG ---
CT CERVICAL SPINE W/O CONTRAST CLINICAL HISTORY: head trauma COMPARISON: None TECHNIQUE: Sequential axial images of cervical spine without contrast and with sagittal and coronal reconstructions. CT was performed with one or more of the following dose reduction techniques: automated exposure control, adjustment of the mA and/or kV according to patient size, or use of iterative reconstruction technique FINDINGS: There is normal alignment of cervical vertebrae. There is no vertebral body height loss or fractures. The prevertebral soft tissue is unremarkable. The dens and periodontic space are within normal limits.There is mild bony osteophyte production and disc space loss at C5-C6 and C6-7. IMPRESSION: Mild degenerative changes with no acute trauma
--- NOTE | 2024-07-16 20:59 | HMCIMG ---
CT CHEST/ABD/PELV W/O CONTRAST CLINICAL HISTORY: head trauma COMPARISON: None TECHNIQUE: Multiple sequential axial images of the chest abdomen and pelvis were obtained from the thoracic inlet through upper abdomen. CT was performed with one or more of the following dose reduction techniques: automated exposure control, adjustment of the mA and/or kV according to patient size, or use of iterative reconstruction technique FINDINGS: There is mild ground glass opacification patchy airspace disease demonstrated in the lung parenchyma. The mediastinum is free of pathologic lymphadenopathy or hematoma. Note is made of artifact pacemaker leads. The liver and spleen are unremarkable. The gallbladder surgically absent. The pancreas and adrenal glands and kidneys and bladder are unremarkable. There is moderate amount of fecal material in the colon. The appendix is unremarkable. There is no identified bowel obstruction. There is no free air or free fluid. There is no bulky abdominal or retroperitoneal lymphadenopathy. The bony structures demonstrate moderate diffuse degenerative changes of the spine. There is no identified acute bony trauma. IMPRESSION: Mild groundglass opacification and patchy areas of airspace disease in the lungs worrisome for potential infiltrates. Change prior cholecystectomy. There is no identified acute trauma
--- NOTE | 2024-07-16 21:09 | HMCIMG ---
SHOULDER COMP 2+VWS LT CLINICAL HISTORY: fall COMPARISON: None TECHNIQUE: 2 images were obtained. FINDINGS: No obvious fracture or dislocation. No joint effusion. The soft tissues appear unremarkable. No radiopaque foreign bodies. There is a left chest pacer maker and leads. IMPRESSION: No acute findings.
[2024-07-16] MEDS: NEOMY SULF/BACITRA/POLYMYXIN B 1 EACH PACKET TP ONE (21:45)
[2024-07-16 21:57] VITALS: BP 118/53; PULSE 62; RESP 18; TEMP 98; O2SAT 98
== END 2024-07-16 22:08 | disposition home or self-care (01) ==
LOC: EDH 18:44
DX: S00.03XA Contusion of scalp, initial encounter (principal); S40.012A Contusion of left shoulder, initial encounter; D72.829 Elevated white blood cell count, unspecified; E78.00 Pure hypercholesterolemia, unspecified; I10 Essential (primary) hypertension; Z79.899 Other long term (current) drug therapy; Z88.1 Allergy status to other antibiotic agents; Z95.810 Presence of automatic (implantable) cardiac defibrillator; W01.0XXA Fall on same level from slipping, tripping and stumbling without subsequent striking against object, initial encounter; Y93.89 Activity, other specified; Y92.89 Other specified places as the place of occurrence of the external cause; Y99.8 Other external cause status
CPT/HCPCS: 36415; 70450; 71045; 71250; 72125; 73030; 73060; 74176; 80048; 85025; 85610; 85730; 93005; 99285

== ENCOUNTER 2024-12-01 07:07 | Day surgery (SDC) | payer OTHER ==
[2024-11-30 08:52] LABS: IMMATURE GRANULOCYTE ABSOLUTE 0.09 K/uL (0-1); NUCLEATED RED BLOOD CELLS 0.0 % (0.0-0.19); PLATELET COUNT (AUTO) 267 K/uL (130-400); RED BLOOD CELL COUNT(AUTO) 4.74 MIL/uL (4.50-6.20); RED CELL DISTRIBUTION WIDTH 12.0 % (11.0-15.5); WHITE BLOOD COUNT (AUTO) 13.9 K/uL (4.8-10.8)
[2024-11-30 08:58] LABS: CREATININE 0.9 mg/dL (0.5-1.3); GLOMERULAR FILTR. RATE CALC 95.0 mL/min (>90); GLUCOSE,RANDOM 107.0 mg/dL (70-105); SODIUM SERUM 136.0 mmol/L (136-145); UREA NITROGEN, BLOOD 18.0 mg/dL (7-18)
[2024-11-30 09:00] LABS: INR 1.15 (0.85-1.15)
[2024-11-30 09:28] VITALS: BP 137/70; PULSE 65; RESP 13; TEMP 97.6
--- NOTE | 2024-11-30 13:55 | NUR ---
REPORT REPORTED WBC TO DIDI VERGARA TO PROCEED Addendum: 11/30/24 at 1431 by RAGHU MARROQUIN RN RN PER YUN MCKAY CBC RECHECKED AND ORDERED FOR 8AM
[~2024-12-01] VITALS: Ht 177.8 cm; Wt 140.8 kg
[2024-12-01] VITALS (12 sets, daily range): BP systolic 102–155; BP diastolic 61–74; PULSE 70–72; RESP 13–18; TEMP 97.4–98
[~2024-12-01 07:07] MED LIST changes: +ALBUTEROL SULF IH; -ATOR10 PO; +ATOR40TA71 PO; -FAMO-136 PO; +FLUT16H NS; +FLUT1BLS3 IH; +GABA-529 PO; -GABA100C PO; +IBUP-2077 PO; -ONDA-243 PO; +PROM25TA7 PO
[2024-12-01 08:01] LABS: NUCLEATED RED BLOOD CELLS 0.0 % (0.0-0.19); PLATELET COUNT (AUTO) 270.0 K/uL (130-400); RED BLOOD CELL COUNT(AUTO) 4.37 MIL/uL (4.50-6.20); RED CELL DISTRIBUTION WIDTH 12.1 % (11.0-15.5); WHITE BLOOD COUNT (AUTO) 12.6 K/uL (4.8-10.8)
--- NOTE | 2024-12-01 08:10 | EKG ---
[facility] Test Date: 2024-12-01 Test Time: 07:48:44 Pat Name: ALINE BACON Department: [facility] Room: [facility] Gender: M Terrapin Fisher: [id number] : 1960 Requested By: Jeffrey MELGAR Order Number: [id number] Reading MD: Dwight Edmonds Measurements Intervals [place] Rate: 67 P: 60 SD: 150 QRS: 220 QRSD: 163 T: 15 QT: 442 QTc: 475 Interpretive Statements Atrial-sensed ventricular-paced complexes Biventricular paced rhythm Compared to ECG 07/16/2024 19:18:22 No significant changes Electronically Signed On 12-02-2024 12:24:22 CDT by Dwight Edmonds Please click the below link to view image of tracing.
[2024-12-01] MEDS ORDERED: LIDOCAINE HCL 1% MDV 50ML VIAL ONE (09:16)
[2024-12-01] MEDS ORDERED: SODIUM BICARB 50MEQ 50ML VIAL 50 ML ONE (09:35)
[2024-12-01] MEDS ORDERED: MIDAZOLAM HCL 1 MG/ML 2ML VIAL ONE ×4 (09:47→10:03)
--- NOTE | 2024-12-01 11:24 | NUR ---
PT ARRIVED TO DAY BED 8 NAD VSS PRESSURE DRESSING TO LEFT CHEST ASYMPTOMATIC.
--- NOTE | 2024-12-01 14:52 | NUR ---
REPORT GIVEN TO TASIA MADERA
== END 2024-12-01 16:32 | disposition home or self-care (01) ==
LOC: DAH 07:07
PROVIDERS: ATTEND Internal Medicine Cardiovascular Disease
DX: Z45.02 Encounter for adjustment and management of automatic implantable cardiac defibrillator (principal); I50.42 Chronic combined systolic (congestive) and diastolic (congestive) heart failure; I25.5 Ischemic cardiomyopathy; I42.0 Dilated cardiomyopathy; K21.9 Gastro-esophageal reflux disease without esophagitis; Z90.49 Acquired absence of other specified parts of digestive tract; G47.33 Obstructive sleep apnea (adult) (pediatric); E66.01 Morbid (severe) obesity due to excess calories; Z88.1 Allergy status to other antibiotic agents; Z88.8 Allergy status to other drugs, medicaments and biological substances; Z68.41 Body mass index [BMI] 40.0-44.9, adult; Z20.822 Contact with and (suspected) exposure to COVID-19; Z79.01 Long term (current) use of anticoagulants; Z79.899 Other long term (current) drug therapy
CPT/HCPCS: 80048; 85025; 85610; 85730; 36415 ×2; 33264; 99156; 99157 ×4; 85027; 93005; C1882; J3010; J0690 ×2; J0665; J3490 ×2; J2250 ×4; A4215; A4222; A4221; A4663; A4216; A4606; A4223 ×3; 33263; C1721

== ENCOUNTER → 2025-04-10 | Outpatient (CLI) | payer OTHER ==
[~2025-04-10] MED LIST changes: -IBUP-2077 PO
--- NOTE | 2025-04-11 12:10 | HMCIMG ---
EXAM: CT Cardiac calcium scoring. CLINICAL HISTORY: CAD screening. TECHNIQUE: Thin collimated axial CT cardiac images were obtained. A CT scan is done according to ALARA (As Low As Reasonably Achievable). CONTRAST: None. COMPARISON: None provided. FINDINGS: Pacemaker leads noted in the right atrium and right ventricle. Calcium Score: VESSEL Number of lesions Volume mm3 Equi. Mass/mg Calcium score LM 0 00.00 00.00 00.00 LAD 2 45.7 --.-- 57.2 LCX 0 00.00 00.00 00.00 RCA 0 00.00 00.00 00.00 Total 2 45.7 --.-- 57.2 IMPRESSION: The calcium score is 57.2. This places the patient above 25th percentile in comparison to a group of patients asymptomatic for coronary artery disease with the same age and gender. This means that >25% of males aged 65-69 have a calcium score that is lower than the patient's. /[place]
== END | disposition home or self-care (01) ==
LOC: RAH 13:34
PROVIDERS: ATTEND Internal Medicine Cardiovascular Disease
DX: Z13.6 Encounter for screening for cardiovascular disorders (principal); I25.10 Atherosclerotic heart disease of native coronary artery without angina pectoris
CPT/HCPCS: 75571